=== PATIENT | male | born 1965 | race Caucasian/White ===

== ENCOUNTER 2023-09-18 17:25 | Emergency (ER) | payer MEDICAID, OTHER ==
[~2023-09-18] VITALS: Ht 182.9 cm; Wt 93.0 kg
[2023-09-18 17:31] VITALS: BP 132/74; PULSE 89; RESP 16; TEMP 97.5; O2SAT 99
[2023-09-18] MEDS: IBUPROFEN 600 MG TAB PO ONE (18:17)
[2023-09-18] MEDS ORDERED: cefTRIAXone 1,000 MG VIAL ONE (18:40)
[2023-09-18] MEDS ORDERED: LIDOCAINE MPF 1% 5 ML ONE (18:40)
[2023-09-18] MEDS ORDERED: SULF-59 PO (18:42)
[2023-09-18] MEDS ORDERED: CEPH-588 PO (18:42)
[2023-09-18] MEDS ORDERED: IBUP-2213 PO (18:42)
[2023-09-18] MEDS: cefTRIAXone 1,000 MG in LIDOCAINE MPF 1% 2.1 ML IM ONE (18:51)
[2023-09-18 19:05] VITALS: BP 132/74; PULSE 89; RESP 16; TEMP 97.5; O2SAT 99
== END 2023-09-18 19:06 | disposition home or self-care (01) ==
LOC: MED 17:25
DX: L03.317 Cellulitis of buttock (principal); R03.0 Elevated blood-pressure reading, without diagnosis of hypertension; K21.9 Gastro-esophageal reflux disease without esophagitis; F11.90 Opioid use, unspecified, uncomplicated; Z79.899 Other long term (current) drug therapy
CPT/HCPCS: 96372; 99284; J0696; J2001

== ENCOUNTER 2023-11-16 11:54 | Emergency (ER) | payer OTHER ==
[~2023-11-16] VITALS: Ht 182.9 cm; Wt 93.0 kg
[~2023-11-16 11:54] MED LIST: CEPH-588 PO; IBUP-2213 PO; SULF-59 PO
[2023-11-16 12:06] VITALS: BP 139/100; PULSE 79; RESP 18; TEMP 97.3; O2SAT 99
[2023-11-16] MEDS ORDERED: CEPH-588 PO (14:28)
[2023-11-16] MEDS ORDERED: SULF-59 PO (14:28)
[2023-11-16] MEDS ORDERED: cefTRIAXone 1,000 MG VIAL ONE (14:29)
[2023-11-16] MEDS ORDERED: LIDOCAINE MPF 1% 5 ML ONE (14:30)
[2023-11-16] MEDS: cefTRIAXone 1,000 MG in LIDOCAINE MPF 1% 2.1 ML IM SCH (14:37)
[2023-11-16 14:58] VITALS: BP 130/82; PULSE 77; RESP 16; TEMP 98; O2SAT 99
== END 2023-11-16 14:58 | disposition home or self-care (01) ==
LOC: MED 11:54
DX: L03.113 Cellulitis of right upper limb (principal); K21.9 Gastro-esophageal reflux disease without esophagitis; I10 Essential (primary) hypertension; F11.90 Opioid use, unspecified, uncomplicated; Z79.1 Long term (current) use of non-steroidal anti-inflammatories (NSAID); Z79.899 Other long term (current) drug therapy
CPT/HCPCS: 96372; 99283; J0696; J2001